=== PATIENT | female | born 1995 | race Native Hawaiian/Other Pacific Islander ===

== ENCOUNTER 2016-04-12 18:13 | Emergency (ER) | payer OTHER ==
[~2016-04-12] VITALS: Ht 170.2 cm; Wt 98.9 kg
[~2016-04-12 18:13] MED LIST: GILDESS 1/20 PO; LEVE500T5 PO; OMEP40CA PO
[2016-04-12 20:41] LABS: PLATELET COUNT 257 K/uL (152-353)
[2016-04-12 20:56] LABS: POTASSIUM 3.8 mmol/L (3.6-5.2); SODIUM 137 mmol/L (136-145)
[2016-04-12 21:54] VITALS: BP 158/60; TEMP 98.3
== END 2016-04-12 21:55 | disposition home or self-care (01) ==
LOC: ED 18:13
DX: M54.5 Low back pain (principal)
CPT/HCPCS: 80053; 81000; 85027; 85651; 96372; 99283; J1885

== ENCOUNTER 2016-08-16 17:48 | Outpatient (CLI) | payer OTHER ==
[2016-08-16 18:00] VITALS: BP 138/70; TEMP 98.5
== END 2016-08-16 19:35 | disposition home or self-care (01) ==
LOC: INF 17:48
DX: R11.10 Vomiting, unspecified (principal)
CPT/HCPCS: 96360; 96361; 96374; 96375; J2405

== ENCOUNTER 2016-10-01 19:11 | Emergency (ER) | payer OTHER ==
[~2016-10-01] VITALS: Ht 170.2 cm; Wt 113.4 kg
[2016-10-01 21:36] VITALS: BP 146/88; TEMP 98.3
== END 2016-10-01 21:41 | disposition home or self-care (01) ==
LOC: ED 19:11
DX: R51 Headache (principal); H54.61 Unqualified visual loss, right eye, normal vision left eye
CPT/HCPCS: 99283

== ENCOUNTER 2016-11-03 06:37 | Emergency (ER) | payer OTHER ==
[~2016-11-03] VITALS: Ht 170.2 cm; Wt 101.6 kg
[2016-11-03 08:20] LABS: PLATELET COUNT 252 K/uL (152-353)
[2016-11-03 08:43] LABS: POTASSIUM 3.8 mmol/L (3.6-5.2); SODIUM 140 mmol/L (136-145)
[2016-11-03 10:29] VITALS: BP 118/78; TEMP 98.2
== END 2016-11-03 10:29 | disposition home or self-care (01) ==
LOC: ED 06:37
PROVIDERS: Emergency Medicine
DX: R10.2 Pelvic and perineal pain (principal); N83.291 Other ovarian cyst, right side
CPT/HCPCS: 80053; 81000; 81025; 82150; 83690; 85027; 96374; 96375; 99284; J1885; J2405

== ENCOUNTER 2016-11-08 11:41 | Outpatient (CLI) | payer OTHER | END 2016-11-08 13:00 | disposition home or self-care (01) | LOC: CT 11:41 | DX: R10.31 Right lower quadrant pain (principal) | CPT/HCPCS: Q9963 ==

== ENCOUNTER 2016-11-24 18:52 | Emergency (ER) | payer OTHER ==
[~2016-11-24] VITALS: Ht 170.2 cm; Wt 106.6 kg
[2016-11-24 19:02] VITALS: TEMP 98.6
[2016-11-24] MEDS ORDERED: BACLOFEN10 MG PO (19:08)
[2016-11-24] MEDS ORDERED: DULO30CA PO (19:09)
[2016-11-24] MEDS ORDERED: LEVO0.0218 PO (19:09)
[2016-11-24 20:10] LABS: PLATELET COUNT 156 K/uL (152-353)
[2016-11-24 20:23] LABS: SODIUM 133 mmol/L (136-145)
[2016-11-24 21:47] VITALS: BP 116/67
== END 2016-11-24 21:48 | disposition home or self-care (01) ==
LOC: ED 18:52
DX: R94.31 Abnormal electrocardiogram [ECG] [EKG] (principal); R00.0 Tachycardia, unspecified
CPT/HCPCS: 80053; 80307; 81000; 82550; 84443; 84484; 85027; 93005; 99283; G0479

== ENCOUNTER 2017-05-03 15:05 | Outpatient (CLI) | payer OTHER ==
[~2017-05-03 15:05] MED LIST changes: +BACLOFEN10 MG PO; +DULO30CA PO; +LEVO0.0218 PO
[2017-05-03 15:23] LABS: PLATELET COUNT 273 K/uL (152-353)
[2017-05-03 15:37] LABS: POTASSIUM 3.7 mmol/L (3.6-5.2)
== END 2017-05-03 19:23 | disposition home or self-care (01) ==
LOC: LABW 15:05
PROVIDERS: Specialist
DX: G40.309 Generalized idiopathic epilepsy and epileptic syndromes, not intractable, without status epilepticus (principal); G40.209 Localization-related (focal) (partial) symptomatic epilepsy and epileptic syndromes with complex partial seizures, not intractable, without status epilepticus
CPT/HCPCS: 36415; 80053; 82542; 85027

== ENCOUNTER 2017-05-30 16:47 | Outpatient (CLI) | payer OTHER | END 2017-05-30 21:41 | disposition home or self-care (01) | LOC: INF 16:47 | DX: E86.0 Dehydration (principal) | CPT/HCPCS: 96360 ==

== ENCOUNTER 2017-06-15 15:00 | Emergency (ER) | payer OTHER ==
[~2017-06-15] VITALS: Ht 170.2 cm; Wt 108.0 kg
[2017-06-15] MEDS ORDERED: ATEN25TA21 PO (15:14)
[2017-06-15 16:23] LABS: PLATELET COUNT 268 K/uL (152-353)
[2017-06-15 16:32] LABS: POTASSIUM 3.8 mmol/L (3.6-5.2); SODIUM 141 mmol/L (136-145)
[2017-06-15 18:20] VITALS: BP 140/78; TEMP 98
== END 2017-06-15 18:20 | disposition home or self-care (01) ==
LOC: ED 15:00
PROVIDERS: Emergency Medicine
DX: R11.2 Nausea with vomiting, unspecified (principal); E03.9 Hypothyroidism, unspecified
CPT/HCPCS: 36415; 80053; 84443; 84702; 85027; 96360; 99284; J2405

== ENCOUNTER 2017-08-15 13:24 | Outpatient (CLI) | payer OTHER ==
[~2017-08-15 13:24] MED LIST changes: +ATEN25TA21 PO
[2017-08-15 13:48] LABS: PLATELET COUNT 269 K/uL (152-353)
[2017-08-15 15:06] LABS: POTASSIUM 3.8 mmol/L (3.6-5.2)
== END 2017-08-15 22:01 | disposition home or self-care (01) ==
LOC: LABW 13:24
PROVIDERS: Internal Medicine Cardiovascular Disease
DX: R53.83 Other fatigue (principal); R00.0 Tachycardia, unspecified; R06.09 Other forms of dyspnea
CPT/HCPCS: 36415; 80053; 84443; 85027; 85651

== ENCOUNTER 2017-08-16 11:26 | Outpatient (CLI) | payer OTHER | END 2017-08-16 23:31 | disposition home or self-care (01) | LOC: LABW 11:26 | DX: R53.83 Other fatigue (principal); R00.0 Tachycardia, unspecified; R06.09 Other forms of dyspnea; E78.00 Pure hypercholesterolemia, unspecified | CPT/HCPCS: 36415; 83704 ==

== ENCOUNTER 2017-09-04 09:29 | Outpatient (CLI) | payer OTHER | END 2017-09-04 22:21 | disposition home or self-care (01) | LOC: RESP 09:29 | DX: R07.89 Other chest pain (principal); R06.02 Shortness of breath | CPT/HCPCS: 93306 ==

== ENCOUNTER 2017-09-25 17:13 | Emergency (ER) | payer OTHER ==
[~2017-09-25] VITALS: Ht 170.2 cm; Wt 98.0 kg
[2017-09-25 18:20] LABS: PLATELET COUNT 273 K/uL (152-353)
[2017-09-25 18:30] LABS: POTASSIUM 3.2 mmol/L (3.6-5.2)
[2017-09-25 19:36] VITALS: BP 141/81; TEMP 98.1
== END 2017-09-25 19:37 | disposition home or self-care (01) ==
LOC: ED 17:13
DX: R33.8 Other retention of urine (principal)
CPT/HCPCS: 36415; 80053; 81000; 85027; 96372; 99283; J1885

== ENCOUNTER 2017-10-08 16:05 | Outpatient (CLI) | payer OTHER | END 2017-10-08 20:31 | disposition home or self-care (01) | LOC: RAD 16:05 | DX: R39.14 Feeling of incomplete bladder emptying (principal) ==

== ENCOUNTER 2017-11-08 17:40 | Emergency (ER) | payer OTHER ==
[~2017-11-08] VITALS: Ht 170.2 cm; Wt 98.0 kg
[2017-11-08 19:23] LABS: PLATELET COUNT 293 K/uL (152-353)
[2017-11-08 19:35] LABS: POTASSIUM 3.5 mmol/L (3.6-5.2)
[2017-11-08 21:59] VITALS: BP 125/81; TEMP 97.9
== END 2017-11-08 22:00 | disposition home or self-care (01) ==
LOC: ED 17:40
PROVIDERS: Family Medicine
DX: M62.830 Muscle spasm of back (principal); R39.11 Hesitancy of micturition
CPT/HCPCS: 36415; 80053; 81000; 85027; 96372; 99283; J2930

== ENCOUNTER 2018-02-07 09:35 | Outpatient (CLI) | payer OTHER | END 2018-02-07 20:12 | disposition home or self-care (01) | LOC: CT 09:35 | DX: R20.2 Paresthesia of skin (principal); R20.0 Anesthesia of skin ==

== ENCOUNTER 2018-03-08 12:34 | Emergency (ER) | payer OTHER ==
[~2018-03-08] VITALS: Ht 170.2 cm; Wt 98.0 kg
[2018-03-08 15:44] VITALS: BP 111/72; TEMP 97.7
== END 2018-03-08 15:54 | disposition home or self-care (01) ==
LOC: ED 12:34
DX: N30.81 Other cystitis with hematuria (principal)
CPT/HCPCS: 81000; 99283

== ENCOUNTER 2018-03-27 12:33 | Emergency (ER) | payer OTHER ==
[~2018-03-27] VITALS: Ht 170.2 cm; Wt 98.0 kg
[2018-03-27 12:43] VITALS: BP 144/92; TEMP 97.9
== END 2018-03-27 12:57 | disposition home or self-care (01) ==
LOC: ED 12:33
DX: J02.9 Acute pharyngitis, unspecified (principal)
CPT/HCPCS: 99281

== ENCOUNTER 2018-04-19 12:47 | Outpatient (CLI) | payer OTHER | END 2018-04-19 20:26 | disposition home or self-care (01) | LOC: CT 12:47 | DX: H53.2 Diplopia (principal) ==

== ENCOUNTER 2018-11-05 15:58 | Emergency (ER) | payer OTHER ==
[~2018-11-05] VITALS: Ht 172.7 cm; Wt 119.3 kg
[2018-11-05 17:50] LABS: PLATELET COUNT 264 K/uL (152-353)
[2018-11-05 17:58] LABS: POTASSIUM 3.8 mmol/L (3.6-5.2)
[2018-11-05 18:35] VITALS: BP 122/72; TEMP 97.7
== END 2018-11-05 18:35 | disposition home or self-care (01) ==
LOC: ED 15:58
PROVIDERS: Family Medicine
DX: N30.81 Other cystitis with hematuria (principal)
CPT/HCPCS: 36415; 80053; 81000; 85027; 99283

== ENCOUNTER 2019-02-26 12:57 | Outpatient (CLI) | payer OTHER | END 2019-02-26 22:29 | disposition home or self-care (01) | LOC: CT 12:57 | DX: R31.9 Hematuria, unspecified (principal) ==

== ENCOUNTER 2019-04-08 10:05 | Outpatient (CLI) | payer OTHER | END 2019-04-08 16:00 | disposition home or self-care (01) | LOC: MRI 10:05 | DX: M54.16 Radiculopathy, lumbar region (principal) ==

== ENCOUNTER → 2019-09-18 | Outpatient (CLI) | payer OTHER | LOC: US 08:28 | DX: R31.0 Gross hematuria (principal) ==

== ENCOUNTER 2019-09-30 13:32 | Outpatient (CLI) | payer OTHER | END 2019-09-30 20:37 | disposition home or self-care (01) | LOC: RAD 13:32 | DX: M25.561 Pain in right knee (principal) ==

== ENCOUNTER 2019-11-04 09:49 | Outpatient (CLI) | payer OTHER | END 2019-11-04 23:19 | disposition home or self-care (01) | LOC: CT 09:49 | DX: R31.9 Hematuria, unspecified (principal) ==

== ENCOUNTER 2020-01-08 13:50 | Outpatient (CLI) | payer OTHER ==
[2020-01-08 14:05] LABS: PLATELET COUNT 255 K/uL (152-353)
[2020-01-08 14:29] LABS: POTASSIUM 4.1 mmol/L (3.6-5.2)
== END 2020-01-08 20:00 | disposition home or self-care (01) ==
LOC: LAB 13:50
PROVIDERS: Nurse Practitioner Family
DX: R00.0 Tachycardia, unspecified (principal); R06.02 Shortness of breath; I10 Essential (primary) hypertension; R07.9 Chest pain, unspecified; Z79.899 Other long term (current) drug therapy; R53.83 Other fatigue; R53.81 Other malaise; E55.9 Vitamin D deficiency, unspecified
CPT/HCPCS: 80053; 80061; 82306; 83036; 84439; 84443; 84481; 85027

== ENCOUNTER 2020-04-06 13:59 | Outpatient (CLI) | payer OTHER | END 2020-04-06 22:14 | disposition home or self-care (01) | LOC: RAD 13:59 | PROVIDERS: ATTEND Nurse Practitioner Family | DX: M79.89 Other specified soft tissue disorders (principal); M79.602 Pain in left arm; M79.622 Pain in left upper arm; R22.32 Localized swelling, mass and lump, left upper limb ==

== ENCOUNTER 2020-04-09 16:16 | Outpatient (CLI) | payer OTHER ==
[2020-04-09 17:45] LABS: PLATELET COUNT 257 K/uL (152-353)
[2020-04-09 18:02] LABS: POTASSIUM 4.7 mmol/L (3.6-5.2)
== END 2020-04-09 19:07 | disposition home or self-care (01) ==
LOC: LAB 16:16
PROVIDERS: ATTEND Internal Medicine
DX: M79.89 Other specified soft tissue disorders (principal); E03.9 Hypothyroidism, unspecified; I10 Essential (primary) hypertension; R00.0 Tachycardia, unspecified; R59.1 Generalized enlarged lymph nodes; R53.81 Other malaise; R53.83 Other fatigue; Z79.899 Other long term (current) drug therapy
CPT/HCPCS: 80053; 80061; 82306; 83036; 84439; 84443; 84481; 85027

== ENCOUNTER 2020-04-29 15:47 | Outpatient (CLI) | payer OTHER | END 2020-04-29 23:49 | LOC: CT 15:47 | PROVIDERS: ATTEND Internal Medicine | DX: M79.89 Other specified soft tissue disorders (principal) ==

== ENCOUNTER 2021-10-20 14:53 | Outpatient (CLI) | payer OTHER | END 2021-10-20 19:06 | disposition home or self-care (01) | LOC: RAD 14:53 | PROVIDERS: ATTEND Internal Medicine Endocrinology, Diabetes & Metabolism | DX: M54.6 Pain in thoracic spine (principal); M54.10 Radiculopathy, site unspecified ==

== ENCOUNTER 2022-09-26 14:50 | Emergency (ER) | payer OTHER ==
[~2022-09-26] VITALS: Ht 172.7 cm; Wt 121.1 kg
[2022-09-26 14:59] VITALS: BP 159/81; TEMP 100
[2022-09-26 15:17] LABS: PLATELET COUNT 239 K/uL (152-353)
[2022-09-26 15:27] LABS: POTASSIUM 4.1 mmol/L (3.6-5.2)
== END 2022-09-26 15:59 | disposition home or self-care (01) ==
LOC: ED 14:50
PROVIDERS: Family Medicine
DX: R11.10 Vomiting, unspecified (principal); B34.9 Viral infection, unspecified; S39.012A Strain of muscle, fascia and tendon of lower back, initial encounter
CPT/HCPCS: 36415; 80053; 81025; 83690; 85027; 96361; 96374; 99284; J2405